=== PATIENT | female | born 1985 | race Caucasian/White ===

== ENCOUNTER 2018-03-20 19:10 | Emergency (ER) | payer MEDICAID ==
[~2018-03-20] VITALS: Ht 165.1 cm; Wt 113.6 kg
[2018-03-20 19:45] VITALS: BP 122/84; Ht 165.1 cm; Wt 113.6 kg
== END 2018-03-20 21:33 | disposition left against medical advice (07) ==
LOC: D.ER 19:10
DX: O26.859 Spotting complicating pregnancy, unspecified trimester (principal); Z3A.00 Weeks of gestation of pregnancy not specified